=== PATIENT | male | born 1955 | race Caucasian/White ===

== ENCOUNTER 2023-11-25 08:00 | Outpatient (RCR) | payer BC, MEDICARE ==
[2023-12-01] MEDS ORDERED: GLUCOPHAGE1000 MG PO (08:27)
[2023-12-01] MEDS ORDERED: AMARYL 2MG T2 MG/TAB PO (08:28)
[2023-12-01] MEDS ORDERED: LIPITOR 10MG10 MG PO (08:29)
[2023-12-01] MEDS ORDERED: PRINZIDE 12.5 M1 TA1 PO (08:33)
[2023-12-01] MEDS ORDERED: ONE-A-DAY MEN'1 EAC4 PO (08:36)
[2023-12-01] MEDS ORDERED: VITAMIN C500 MG PO (08:39)
[2023-12-01] MEDS ORDERED: VITAMIN D PO (08:39)
[2023-12-01] MEDS ORDERED: ZINC PICOLINATE PO (08:42)
[2023-12-02] MEDS ORDERED: CEPHALEXIN500 M1 PO (15:22)
[2023-12-02] MEDS ORDERED: ASPI325T6 PO (15:22)
[2023-12-02] MEDS ORDERED: PERCOCET 325 MG1 TA2 PO (15:23)
== END 2023-12-04 | disposition home or self-care (01) ==
LOC: WSPT
DX: Z48.89 Encounter for other specified surgical aftercare (principal)

== ENCOUNTER 2023-12-01 06:55 | Day surgery (SDC) | payer MEDICARE ==
[2023-12-01] VITALS (13 sets, daily range): BP systolic 120–134; BP diastolic 60–90; PULSE 79–102; TEMP 97.6–98.2
[~2023-12-01] VITALS: Ht 177.8 cm; Wt 136.8 kg
[~2023-12-01 06:55] MED LIST: LR 1,000 ML IV SCH
[2023-12-01] MEDS ORDERED: GLUCOPHAGE1000 MG PO (08:27)
[2023-12-01] MEDS ORDERED: AMARYL 2MG T2 MG/TAB PO (08:28)
[2023-12-01] MEDS ORDERED: LIPITOR 10MG10 MG PO (08:29)
[2023-12-01] MEDS ORDERED: PRINZIDE 12.5 M1 TA1 PO (08:33)
[2023-12-01] MEDS ORDERED: ONE-A-DAY MEN'1 EAC4 PO (08:36)
[2023-12-01] MEDS ORDERED: VITAMIN D PO (08:39)
[2023-12-01] MEDS ORDERED: VITAMIN C500 MG PO (08:39)
[2023-12-01] MEDS ORDERED: ZINC PICOLINATE PO (08:42)
[2023-12-01] MEDS ORDERED: dexAMETHasone 10 MG/ML VIAL ONE (09:01)
[2023-12-01] MEDS ORDERED: Ondansetron 4 MG/2 ML VIAL ONE (09:01)
[2023-12-01] MEDS ORDERED: fentaNYL 50 MCG/ML 2 ML VIAL ONE (09:01)
[2023-12-01] MEDS ORDERED: Lidocaine PF 2% (20 MG/ML) 5 ML VIAL ONE (09:01)
[2023-12-01] MEDS ORDERED: NS 10 ML IV ONE (09:01)
[2023-12-01] MEDS ORDERED: HYDROmorphone 2 MG/1 ML VIAL IV PRN (09:30)
[2023-12-01] MEDS ORDERED: Ondansetron 4 MG/2 ML VIAL IV PRN ×2 (09:30→11:15)
[2023-12-01] MEDS ORDERED: Tranexamic Acid 1,000 MG/10 ML VIAL ONE ×2 (09:34→10:50)
[2023-12-01] MEDS ORDERED: ePHEDrine 50 MG/ML VIAL ONE (09:34)
[2023-12-01] MEDS ORDERED: Thrombin Human (Recombinant) 5,000 UNITS VIAL TP ONE ×2 (09:36→10:00)
[2023-12-01] MEDS ORDERED: Morphine 4 MG/ML VIAL SQ ONE (09:45)
[2023-12-01] MEDS ORDERED: Ketorolac 30 MG/ML VIAL IM ONE (09:46)
[2023-12-01] MEDS ORDERED: Magnes Hydrox (MOM) 80 MG/ML 30 ML CUP PO PRN (11:15)
[2023-12-01] MEDS ORDERED: NS 1,000 ML IV SCH (11:15)
[2023-12-01] MEDS ORDERED: Morphine 4 MG/ML VIAL IV PRN (11:15)
[2023-12-01] MEDS ORDERED: Naloxone 0.4 MG/ML VIAL IV PRN (11:15)
[2023-12-01] MEDS ORDERED: Bisacodyl 5 MG TAB PO PRN (11:15)
[2023-12-01] MEDS ORDERED: Mag/Al Hydrox/Simeth Susp 30 ML CUP PO PRN (11:15)
[2023-12-01] MEDS ORDERED: Acetaminophen 500 MG TAB PO SCH (11:15)
[2023-12-01] MEDS ORDERED: oxyCODONE 5 MG TAB PO PRN (11:15)
[2023-12-01] MEDS ORDERED: Acetaminophen 500 MG TAB PO PRN (11:15)
[2023-12-01] MEDS ORDERED: Ketorolac 15 MG/ML VIAL IV SCH (12:00)
--- NOTE | 2023-12-01 12:30 | NUR ---
PT TO ROOM 330 PER BED WITH REPORT FROM HERMAN FACIAL OPERATOR @1215. PT IS A/O X4, VSS, LUNGS CTA, BOWEL SOUNDS PRESENT. DRESSING TO LEFT KNEE CDI WITH HEMOVAC IN PLACE. IV TO LEFT HAND. SCDS PLACED BILATERALLY. FAMILY AT BEDSIDE.
[2023-12-01] MEDS ORDERED: ceFAZolin 2 G in Water For Injection,Sterile 20 ML IV SCH (16:00)
[2023-12-01] MEDS ORDERED: Insulin Aspart (NovoLOG) SQ SCH (17:00)
--- NOTE | 2023-12-01 17:15 | NUR ---
PT UP WITH THERAPY. RETURNED TO BED. VSS.
[2023-12-01] MEDS ORDERED: Ascorbic Acid 500 MG TAB PO SCH (21:00)
[2023-12-01] MEDS ORDERED: Atorvastatin 10 MG TAB PO SCH (21:00)
[2023-12-01] MEDS ORDERED: Sennosides/Docusate 8.6-50 MG TAB PO SCH (21:00)
--- NOTE | 2023-12-01 21:15 | NUR ---
PT AMBULATING IN HALLWAY WITH STAFF AND WALKER. GAIT STEADY. DENIES PAIN. HS MEDS GIVEN. HAS INT TO LT HAND. ASSISTED WITH CPAP SETUP. DRSG TO LT KNEE D/I, HEMOVAC COMPRESSED.
[2023-12-02] VITALS (7 sets, daily range): BP systolic 122–152; BP diastolic 77–88; PULSE 84–87; TEMP 97.6–98.2
--- NOTE | 2023-12-02 05:38 | NUR ---
SCHEDULED AM MEDS GIVEN. PT REPORTS PAIN IS 3/10 TO LT KNEE.
--- NOTE | 2023-12-02 08:37 | NUR ---
PT RESTING IN BED. UP WITH THERAPY AND UP TO BR ADLIB. PT AMBULATED WITH SLOW STEADY GAIT. HEMOVAC DRAIN WITH
[2023-12-02] MEDS ORDERED: Magnes Hydrox (MOM) 80 MG/ML 30 ML CUP PO SCH (09:00)
[2023-12-02] MEDS ORDERED: Rivaroxaban 10 MG TAB PO SCH (09:00)
--- NOTE | 2023-12-02 09:46 | NUR ---
Process Eng met with patient to discuss discharge planning. Patient lives alone in [place] and sees Dr. Mosquera for primary care. Patient obtains medications from [facility] with no difficulties. Patient uses a CPAP at home and also has a walker for recovery. Patient is normally independent with ADLS and has outpatient PT set up at [facility]. Patient stated he is interested in purchasing a tub transfer bench and may stop by [facility] on his way home. SW also reviewed other options for purchase. Patient does not have DPOA-HC established at this time but stated he is going to be making these arrangements in the next couple weeks. 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 Patient advised his mother, Jaclyn (ph#[phone]) is the best point of contact and will be his ride home. Discharge Plan: Home
--- NOTE | 2023-12-02 11:22 | NUR ---
Initial visit; Patient thanked Department Store General Manager for looking in on him and offering God's blessings and to keep him in her prayers. His and Nurse were also present.
[2023-12-02 12:41] LABS: BASO % 0.3 % (0.0-2.0); EOS # 0.1 K/mm3 (0.0-0.7); EOS % 0.3 % (0.0-4.0); GRAN # 10.8 K/mm3 (1.4-6.5); GRAN % 72.6 % (42.2-75.2); HEMATOCRIT 42.4 % (42.0-52.0); HEMOGLOBIN 14.3 g/dl (13.5-18.0); LYMPH # 2.8 K/mm3 (1.2-3.4); LYMPH % 18.5 % (20.0-51.0); MEAN CELL VOLUME 90 fl (80.0-100.0); MEAN CORPUSCULAR HEMOGLOBIN 30 pg (27-31); MEAN CORPUSCULAR HGB CONC 34 g/dl (33.0-37.0); MEAN PLATELET VOLUME 11.3 fl (7.4-10.4); MONO # 1.2 K/mm3 (0.1-0.6); MONO % 7.9 % (1.7-9.3); PLATELET COUNT 252 K/mm3 (130-400); RED BLOOD COUNT 4.72 M/mm3 (4.20-5.60); REDCELL DISTRIBUTION WIDTH-CV 13.5 % (11.5-14.5)
[2023-12-02 12:56] LABS: CALCIUM 9.4 mg/dL (8.4-10.2); CREATININE, serum 1.19 mg/dL (0.72-1.25); POTASSIUM 3.5 mmol/L (3.5-4.5)
[2023-12-02] MEDS ORDERED: ASPI325T6 PO (15:22)
[2023-12-02] MEDS ORDERED: CEPHALEXIN500 M1 PO (15:22)
[2023-12-02] MEDS ORDERED: PERCOCET 325 MG1 TA2 PO (15:23)
--- NOTE | 2023-12-02 17:08 | NUR ---
DISCHARGE INSTRUCTIONS REVIEWED WITH PT AND FAMILY. QUESTIONS ANSWERED. PT LEFT UNIT PER WHEEL CHAIR.
[2023-12-05] MEDS ORDERED: Celecoxib 200 MG CAP PO SCH (21:00)
== END 2023-12-02 17:09 | disposition home or self-care (01) ==
LOC: SDCO 06:55 → SURG 12:30 → SDCO 12-02 17:09
PROVIDERS: Physician Assistant
DX: M17.12 Unilateral primary osteoarthritis, left knee (principal); E11.9 Type 2 diabetes mellitus without complications; I10 Essential (primary) hypertension; G47.33 Obstructive sleep apnea (adult) (pediatric); Z79.84 Long term (current) use of oral hypoglycemic drugs; Z79.899 Other long term (current) drug therapy
CPT/HCPCS: OP; A9284; C1713; C1776; J0665; J0690; J1100; J1580; J1815; J1885; J2270; J2405; J2704; J2795; J3010; J7120

== ENCOUNTER → 2023-12-04 | Outpatient (RCR) | payer MEDICARE ==
[~2023-12-04] MED LIST changes: +AMARYL 2MG T2 MG/TAB PO; +ASPI325T6 PO; +CEPHALEXIN500 M1 PO; +GLUCOPHAGE1000 MG PO; +LIPITOR 10MG10 MG PO; -LR 1,000 ML IV SCH; +ONE-A-DAY MEN'1 EAC4 PO; +PERCOCET 325 MG1 TA2 PO; +PRINZIDE 12.5 M1 TA1 PO; +VITAMIN C500 MG PO; +VITAMIN D PO; +ZINC PICOLINATE PO
== END | disposition home or self-care (01) ==
LOC: WSPT
DX: Z48.89 Encounter for other specified surgical aftercare (principal); Z96.652 Presence of left artificial knee joint

== ENCOUNTER 2024-01-01 10:30 | Outpatient (RCR) | payer MEDICARE | END 2024-01-04 | disposition home or self-care (01) | LOC: WSPT | DX: Z48.89 Encounter for other specified surgical aftercare (principal); Z96.652 Presence of left artificial knee joint ==